=== PATIENT | female | born 1985 | race Caucasian/White ===

== ENCOUNTER 2017-03-11 17:05 | Inpatient (IN) | payer OTHER ==
[~2017-03-11] VITALS: Ht 154.9 cm; Wt 56.7 kg
[2017-03-11 17:11] VITALS: BP_SYST 141
[2017-03-11 17:50] LABS: BASOPHILS # (AUTO) 0.1 K/uL (0.0-0.2); BASOPHILS % (AUTO) 0.8 % (0.0-2.0); EOSINOPHILS # (AUTO) 0.6 K/uL (0.0-0.4); EOSINOPHILS % (AUTO) 4.3 % (0.0-4.0); HEMATOCRIT 42.6 % (36-48); HEMOGLOBIN 13.9 g/dL (12.0-16.0); LYMPHOCYTES # (AUTO) 3.5 K/uL (1.0-5.5); LYMPHOCYTES % (AUTO) 23.6 % (20.5-51.5); MEAN CORPUSCULAR HEMOGLOBIN 30 pg (27-31); MEAN CORPUSCULAR HGB CONC 33 % (32-36); MEAN CORPUSCULAR VOLUME 91 fL (79.0-98.0); MONOCYTES # (AUTO) 0.8 K/uL (0.0-1.0); MONOCYTES % (AUTO) 5.3 % (1.7-9.3); PLATELET COUNT (AUTO) 328 K/uL (130-430); RED BLOOD CELL COUNT(AUTO) 4.69 MIL/uL (4.2-6.2); RED CELL DISTRIBUTION WIDTH 12.9 % (9.0-15.0)
[2017-03-11 17:54] LABS: ANION GAP 16 (5-15); CALCIUM 9.8 mg/dL (8.4-11.0); CHLORIDE 102 mmol/L (98-107); GLUCOSE 118 mg/dL (70-99); POTASSIUM 3.4 mmol/L (3.5-5.1); SODIUM SERUM 138 mmol/L (136-145); UREA NITROGEN, BLOOD 8 mg/dL (8-21)
[2017-03-11 17:55] LABS: GFR AFRICAN AMERICAN 124 mL/min (>90)
[2017-03-11 17:59] LABS: ALANINE AMINOTRANSFERASE 21 U/L (12-78); ALBUMIN 4.9 g/dL (3.4-4.8); ASPARTATE AMINOTRANSFERASE 17 U/L (10-37); TOTAL BILIRUBIN 0.6 mg/dL (0.0-1.0); TOTAL PROTEIN, SERUM 8.9 g/dL (6.4-8.3)
[2017-03-11 18:00] LABS: ALCOHOL, BLOOD < 3 mg/dL (<10)
[2017-03-11] MEDS ORDERED: DIPHENHYDRAMINE INJ 50 MG/ML VIAL IVP ONE (18:30)
[2017-03-11] MEDS ORDERED: DEXAMETHASONE SOD PHOSPHATE 10 MG/ML VIAL IVP ONE (18:30)
[2017-03-11] MEDS ORDERED: KETOROLAC TROMETHAMINE 30 MG VIAL IVP ONE (18:30)
[2017-03-11 18:48] LABS: BILIRUBIN,URINE NEGATIVE (NEGATIVE); BLOOD, URINE NEGATIVE (NEGATIVE); CLARITY/URINE CLEAR (CLEAR); COLOR,URINE YELLOW (YELLOW); GLUCOSE,URINE NEGATIVE (NEGATIVE); KETONES,URINE 3+ (NEGATIVE); LEUKOCYTE ESTERASE ,URINE NEGATIVE (NEGATIVE); NITRITE, URINE NEGATIVE (NEGATIVE); PH,URINE 5.5 (5.0-8.0); PROTEIN URINE 1+ (NEGATIVE); UROBILINOGEN,URINE 0.2 (0.2-1.0)
[2017-03-11 18:55] LABS: BACTERIA,URINE FEW /HPF (None Seen); MUCUS,URINE None Seen /LPF (None Seen); RBC,URINE NONE SEEN /HPF (0-3); WBC,URINE 0-3 /HPF (0-3)
[2017-03-11 19:01] LABS: BARBITURATE, URINE NEGATIVE (NEG <=200); BENZODIAZEPINE, URINE NEGATIVE (NEG <=150); CANNABINOID, URINE NEGATIVE (NEG <=50); COCAINE, URINE NEGATIVE (NEG <=150); METHAMPHETAMINES SCREEN,URINE POSITIVE (NEG <=500); OPIATE, URINE POSITIVE (NEG <=100); PHENCYCLIDINE SCREEN,URINE NEGATIVE (NEG <=25); UR TRICYCLIC ANTIDEPRESSANTS POSITIVE (NEG <=300); URINE AMPHETAMINE NEGATIVE (NEG <=500); URINE METHADONE NEGATIVE (NEG <=200); URINE OXYCODONE SCREEN NEGATIVE (NEG <=100); URINE PROPOXYPHENE SCREEN NEGATIVE (NEG <=300)
[2017-03-11] MEDS ORDERED: POTASSIUM CHLORIDE 20 MEQ TAB.PRT.SR PO ONE (20:45)
[2017-03-11 21:05] VITALS: BP_SYST 126
[2017-03-11] MEDS ORDERED: ALBU8.5H8 INH (21:25)
[2017-03-11] MEDS ORDERED: [UNRECOGNIZED DRUG - OTHER] NS (21:25)
[2017-03-11] MEDS ORDERED: NACL 0.9% 1,000 ML IV SCH ×2 (21:30→22:00)
[2017-03-11] MEDS ORDERED: VANCOMYCIN HCL 1000 MG/VIAL IV ONE (22:03)
[2017-03-11] MEDS ORDERED: cefTRIAXone 1 GM VIAL ONE (22:04)
[2017-03-11] MEDS ORDERED: VANCOMYCIN HCL 1 GM/NS PREMIX 250 ML IV ONE (22:30)
[2017-03-11] MEDS: LR 1,000 ML IV SCH (22:30)
[2017-03-11] MEDS: ACETAMINOPHEN 325 MG TABLET PO PRN (23:02)
[2017-03-11 23:10] VITALS: BP_SYST 128
[2017-03-12 01:10] VITALS: BP_SYST 125
[2017-03-12] MEDS: LORazepam 2 MG/ML VIAL IVP PRN ×3 (01:49→17:00)
[2017-03-12 04:29] VITALS: BP_SYST 124
[2017-03-12] MEDS: ACETAMINOPHEN 325 MG TABLET PO PRN (06:18)
[2017-03-12 07:23] LABS: BASOPHILS % (AUTO) 0.1 % (0.0-2.0); EOSINOPHILS % (AUTO) 0.1 % (0.0-4.0); HEMATOCRIT 37.1 % (36-48); HEMOGLOBIN 12.5 g/dL (12.0-16.0); LYMPHOCYTES # (AUTO) 2.1 K/uL (1.0-5.5); LYMPHOCYTES % (AUTO) 18.9 % (20.5-51.5); MEAN CORPUSCULAR HEMOGLOBIN 31 pg (27-31); MEAN CORPUSCULAR HGB CONC 34 % (32-36); MEAN CORPUSCULAR VOLUME 91 fL (79.0-98.0); MONOCYTES # (AUTO) 0.4 K/uL (0.0-1.0); MONOCYTES % (AUTO) 3.4 % (1.7-9.3); NEUTROPHILS # (AUTO) 8.7 K/uL (1.8-7.7); NEUTROPHILS % (AUTO) 77.5 % (40.0-70.0); PLATELET COUNT (AUTO) 256 K/uL (130-430); RED BLOOD CELL COUNT(AUTO) 4.08 MIL/uL (4.2-6.2); RED CELL DISTRIBUTION WIDTH 12.4 % (9.0-15.0); WHITE BLOOD COUNT (AUTO) 11.2 K/uL (4.8-10.8)
[2017-03-12 07:27] LABS: ALBUMIN 3.8 g/dL (3.4-4.8); CREATININE 0.63 mg/dL (0.55-1.30); POTASSIUM 3.9 mmol/L (3.5-5.1); TOTAL BILIRUBIN 0.5 mg/dL (0.0-1.0); TOTAL PROTEIN, SERUM 7.4 g/dL (6.4-8.3)
[2017-03-12 08:00] VITALS: BP_SYST 115
[2017-03-12 08:45] LABS: C-REACTIVE PROTEIN QUANT < 0.2 mg/dL (0-0.5)
[2017-03-12 09:00] LABS: ERYTHROCYTE SEDIMENTATION RATE 7 MM/HR (0-20)
[2017-03-12] MEDS ORDERED: VANCOMYCIN HCL 750 MG in NS 250 ML IV SCH (11:00)
[2017-03-12 11:29] VITALS: BP_SYST 112
[2017-03-12] MEDS ORDERED: MULTIVITS,CA,MINERALS/IRON/FA 1 TABLET PO ONE (14:15)
[2017-03-12] MEDS ORDERED: ALPRAZolam 0.25 MG TABLET PO ONE (14:15)
[2017-03-12] MEDS: ALPRAZolam 0.25 MG TABLET PO SCH ×2 (15:00→20:28)
[2017-03-12 15:29] VITALS: BP_SYST 116
[2017-03-12] MEDS: LR 1,000 ML IV SCH (16:07)
[2017-03-12 19:51] VITALS: BP_SYST 129
[2017-03-13 00:24] VITALS: BP_SYST 127
[2017-03-13] MEDS: LORazepam 2 MG/ML VIAL IVP PRN ×2 (00:29→06:39)
[2017-03-13] MEDS: LR 1,000 ML IV SCH (03:29)
[2017-03-13 04:02] VITALS: BP_SYST 121
[2017-03-13 07:34] LABS: BASOPHILS % (AUTO) 0.4 % (0.0-2.0); EOSINOPHILS # (AUTO) 0.2 K/uL (0.0-0.4); EOSINOPHILS % (AUTO) 2.1 % (0.0-4.0); HEMATOCRIT 35.9 % (36-48); HEMOGLOBIN 11.9 g/dL (12.0-16.0); LYMPHOCYTES # (AUTO) 3.1 K/uL (1.0-5.5); LYMPHOCYTES % (AUTO) 26.3 % (20.5-51.5); MEAN CORPUSCULAR HEMOGLOBIN 30 pg (27-31); MEAN CORPUSCULAR HGB CONC 33 % (32-36); MEAN CORPUSCULAR VOLUME 91 fL (79.0-98.0); MONOCYTES # (AUTO) 0.6 K/uL (0.0-1.0); MONOCYTES % (AUTO) 4.8 % (1.7-9.3); NEUTROPHILS % (AUTO) 66.4 % (40.0-70.0); PLATELET COUNT (AUTO) 265 K/uL (130-430); RED BLOOD CELL COUNT(AUTO) 3.95 MIL/uL (4.2-6.2); RED CELL DISTRIBUTION WIDTH 12.6 % (9.0-15.0); WHITE BLOOD COUNT (AUTO) 11.9 K/uL (4.8-10.8)
[2017-03-13 07:50] LABS: ALBUMIN 3.6 g/dL (3.4-4.8); CALCIUM 8.5 mg/dL (8.4-11.0); CREATININE 0.61 mg/dL (0.55-1.30); POTASSIUM 3.1 mmol/L (3.5-5.1); TOTAL BILIRUBIN 0.5 mg/dL (0.0-1.0); TOTAL PROTEIN, SERUM 6.9 g/dL (6.4-8.3)
[2017-03-13 08:00] VITALS: BP_SYST 128
[2017-03-13] MEDS: MULTIVITS,CA,MINERALS/IRON/FA 1 TABLET PO SCH ×3 (09:04→16:21)
[2017-03-13] MEDS: ALPRAZolam 0.25 MG TABLET PO SCH ×3 (09:08→21:00)
[2017-03-13 12:18] VITALS: BP_SYST 109
[2017-03-13] MEDS ORDERED: GABAPENTIN 300 MG CAPSULE PO ONE (13:15)
[2017-03-13] MEDS ORDERED: ONDANSETRON HCL 4 MG/2 ML VIAL IVP PRN (13:30)
[2017-03-13] MEDS ORDERED: MORPHINE 2 MG/ML INJ. SYRINGE IVP PRN (13:30)
[2017-03-13] MEDS: MORPHINE 4 MG/ML INJ. SYRINGE IVP PRN ×2 (13:34→18:46)
[2017-03-13] MEDS ORDERED: MAGNESIUM OXIDE 400 MG TABLET PO ONE (14:30)
[2017-03-13] MEDS ORDERED: CHOLECALCIFEROL (VITAMIN D3) 2,000 UNIT TABLET PO ONE (14:30)
[2017-03-13] MEDS ORDERED: POTASSIUM CHLORIDE 20 MEQ TAB.PRT.SR PO ONE (14:30)
[2017-03-13 16:00] VITALS: BP_SYST 113
[2017-03-13] MEDS: ACYCLOVIR IV 500 MG in D5W 100 ML IV SCH ×2 (16:26→22:25)
[2017-03-13] MEDS: MAGNESIUM OXIDE 400 MG TABLET PO SCH (21:00)
[2017-03-13] MEDS: GABAPENTIN 300 MG CAPSULE PO SCH (21:00)
[2017-03-13] MEDS: POTASSIUM CHLORIDE 20 MEQ TAB.PRT.SR PO SCH (21:01)
[2017-03-14 00:04] VITALS: BP_SYST 108
[2017-03-14] MEDS: MORPHINE 4 MG/ML INJ. SYRINGE IVP PRN ×3 (02:02→10:27)
[2017-03-14] MEDS: ACYCLOVIR IV 500 MG in D5W 100 ML IV SCH ×2 (05:12→14:00)
[2017-03-14 07:25] LABS: BASOPHILS # (AUTO) 0.1 K/uL (0.0-0.2); BASOPHILS % (AUTO) 0.6 % (0.0-2.0); EOSINOPHILS # (AUTO) 0.6 K/uL (0.0-0.4); EOSINOPHILS % (AUTO) 6.6 % (0.0-4.0); HEMATOCRIT 37.1 % (36-48); HEMOGLOBIN 12.5 g/dL (12.0-16.0); LYMPHOCYTES # (AUTO) 4.1 K/uL (1.0-5.5); MEAN CORPUSCULAR HEMOGLOBIN 31 pg (27-31); MEAN CORPUSCULAR HGB CONC 34 % (32-36); MEAN CORPUSCULAR VOLUME 92 fL (79.0-98.0); MONOCYTES # (AUTO) 0.7 K/uL (0.0-1.0); MONOCYTES % (AUTO) 7.2 % (1.7-9.3); NEUTROPHILS % (AUTO) 41.6 % (40.0-70.0); PLATELET COUNT (AUTO) 253 K/uL (130-430); RED BLOOD CELL COUNT(AUTO) 4.05 MIL/uL (4.2-6.2); RED CELL DISTRIBUTION WIDTH 12.3 % (9.0-15.0); WHITE BLOOD COUNT (AUTO) 9.5 K/uL (4.8-10.8)
[2017-03-14 07:27] LABS: ALBUMIN 3.8 g/dL (3.4-4.8); CALCIUM 8.9 mg/dL (8.4-11.0); CREATININE 0.64 mg/dL (0.55-1.30); POTASSIUM 3.7 mmol/L (3.5-5.1); TOTAL BILIRUBIN 0.4 mg/dL (0.0-1.0); TOTAL PROTEIN, SERUM 7.2 g/dL (6.4-8.3)
[2017-03-14] MEDS: GABAPENTIN 300 MG CAPSULE PO SCH (08:53)
[2017-03-14] MEDS: MAGNESIUM OXIDE 400 MG TABLET PO SCH (08:54)
[2017-03-14] MEDS: ALPRAZolam 0.25 MG TABLET PO SCH ×2 (08:54→15:20)
[2017-03-14] MEDS: POTASSIUM CHLORIDE 20 MEQ TAB.PRT.SR PO SCH (08:54)
[2017-03-14] MEDS: MULTIVITS,CA,MINERALS/IRON/FA 1 TABLET PO SCH ×2 (08:55→15:20)
[2017-03-14] MEDS ORDERED: CHOLECALCIFEROL (VITAMIN D3) 2,000 UNIT TABLET PO SCH (09:00)
[2017-03-14 10:15] LABS: ERYTHROCYTE SEDIMENTATION RATE 9 MM/HR (0-20)
[2017-03-14 12:11] VITALS: BP_SYST 112
[2017-03-14 14:24] VITALS: BP_SYST 112
[2017-03-16 09:31] LABS: WEST NILE VIRUS, IgG, SERUM Negative (Negative)
== END 2017-03-14 15:48 | disposition home or self-care (01) | DRG 97 ==
LOC: SED 17:05 → STU 19:06 → SMU 03-13 16:14
PROVIDERS: ADMIT Internal Medicine; ATTEND Internal Medicine
DX: G03.0 Nonpyogenic meningitis (principal); G92 Toxic encephalopathy; G43.809 Other migraine, not intractable, without status migrainosus; E87.6 Hypokalemia; D72.829 Elevated white blood cell count, unspecified; F19.10 Other psychoactive substance abuse, uncomplicated; Z88.0 Allergy status to penicillin
CPT/HCPCS: 36415; 70450-TC; 71020-TC; 80053; 80307; 81000-TC; 82306; 82607; 83605; 83735-TC; 84703; 85025; 85651-TC; 86140; 86694; 86788; 86789; 87040-TC; 93005; 96374; 96375; 99285; G0482; J0133; J0696; J1100; J1200; J1885; J2060; J2270; J3370; J7030; J7050; J7060; J7120